=== PATIENT | female | born 1965 | race African-American/Black ===

== ENCOUNTER 2018-11-29 04:23 | Emergency (ER) | payer OTHER ==
[~2018-11-29] VITALS: Ht 175.3 cm; Wt 108.9 kg
[~2018-11-29 04:23] MED LIST: ASPIRIN325; COREG PO; DARVOCET-N 1001 EACH PO; HCTZ; HYDROCHLOROTHIA25 M1 PO; NAPROSYN500 MG PO; NORCO 5-325 TA1 EACH PO; PREDNISONE 20 M20 MG PO; PRILOSEC40 MG PO; PROAIR HFA8.5 GM INH; TUSSIONEX PENN473 ML PO; ZOCOR
[2018-11-29 04:25] VITALS: BP 140/91
[2018-11-29] MEDS ORDERED: NAPROSYN500 MG PO (05:18)
[2018-11-29] MEDS ORDERED: ACETAMINOPHEN-1 EAC1 PO (05:18)
[2018-11-29] MEDS ORDERED: AUGMENTIN 875-1 EACH PO (05:18)
== END 2018-11-29 05:50 | disposition home or self-care (01) ==
LOC: ER 04:23
DX: K11.21 Acute sialoadenitis (principal); R68.2 Dry mouth, unspecified; I10 Essential (primary) hypertension; E78.00 Pure hypercholesterolemia, unspecified; Z86.73 Personal history of transient ischemic attack (TIA), and cerebral infarction without residual deficits

== ENCOUNTER → 2019-02-11 | Outpatient (CLI) | payer OTHER ==
[~2019-02-11] MED LIST changes: +ACETAMINOPHEN-1 EAC1 PO; +AUGMENTIN 875-1 EACH PO
== END ==
LOC: RAD 12:52
DX: R05 Cough (principal)

== ENCOUNTER 2019-09-28 10:09 | Emergency (ER) | payer OTHER ==
[~2019-09-28] VITALS: Ht 175.3 cm; Wt 108.9 kg
[2019-09-28 10:21] VITALS: BP 142/99
[2019-09-28] MEDS ORDERED: MOBIC15 MG PO (11:04)
[2019-09-28] MEDS ORDERED: VOLTAREN GEL 1100 G1 TOP (11:11)
== END 2019-09-28 11:10 | disposition home or self-care (01) ==
LOC: ER 10:09
DX: S63.592A Other specified sprain of left wrist, initial encounter (principal); I10 Essential (primary) hypertension; E78.00 Pure hypercholesterolemia, unspecified; Z90.49 Acquired absence of other specified parts of digestive tract; Z86.73 Personal history of transient ischemic attack (TIA), and cerebral infarction without residual deficits; Z88.6 Allergy status to analgesic agent; Z88.8 Allergy status to other drugs, medicaments and biological substances; X50.0XXA Overexertion from strenuous movement or load, initial encounter; Y93.89 Activity, other specified; Y92.89 Other specified places as the place of occurrence of the external cause; Y99.0 Civilian activity done for income or pay

== ENCOUNTER → 2019-12-21 | Outpatient (CLI) | payer OTHER ==
[~2019-12-21] MED LIST changes: +MOBIC15 MG PO; +VOLTAREN GEL 1100 G1 TOP
== END ==
LOC: RAD 09:45
PROVIDERS: ATTEND Family Medicine
DX: M25.532 Pain in left wrist (principal)

== ENCOUNTER → 2020-01-13 | Outpatient (CLI) | payer OTHER ==
[2020-01-13 10:06] LABS: ABSOLUTE NEUTROPHILS 2.6 thou/uL (1.4-8.2); BASOPHILS 0.4 % (0.0-2.0); EOSINOPHILS 8.2 % (0.0-3.0); HEMATOCRIT 37.3 % (37.0-47.0); HEMOGLOBIN 12.5 gm/dL (12.0-15.0); LYMPHOCYTES 28.2 % (24.0-44.0); MCH 28.5 pg (26.0-34.0); MCHC 33.4 g/dL (28.0-37.0); MCV 85.3 fL (80.0-100.0); MONOCYTES 9.9 % (1.0-8.0); PLATELET COUNT 324 thou/uL (150-400); POLYS 53.3 % (36.0-66.0); RBC 4.38 mil/uL (4.20-5.00); RDW 13.3 % (10.5-14.5); WBC 4.9 thou/uL (4.0-11.0)
[2020-01-13 10:33] LABS: ALBUMIN 3.6 g/dL (3.4-5.0); ANION GAP 7 mmol/L (7-16); BUN 10 mg/dL (7-18); CALCIUM 8.8 mg/dL (8.5-10.1); CHLORIDE 104 mmol/L (98-107); CHOLESTEROL 209 mg/dL (<200); CO2 29 mmol/L (21-32); CREATININE 0.8 mg/dL (0.6-1.0); GLUCOSE 119 mg/dL (74-106); HDL CHOLESTEROL 42 mg/dL (>40); LDL CHOLESTEROL 147 mg/dL (<100); POTASSIUM 3.9 mmol/L (3.5-5.1); SGOT 21 U/L (15-37); SGPT 24 U/L (30-65); SODIUM 140 mmol/L (136-145); TOTAL BILIRUBIN 0.6 mg/dL (0.2-1.0); TRIGLYCERIDE 104 mg/dL (<150); VLDL 21 mg/dL (<40)
[2020-01-14 03:06] LABS: 25-HYDROXY TOTAL 9.8 ng/mL (30.0-100.0)
== END ==
LOC: LAB 09:37
PROVIDERS: ATTEND Family Medicine
DX: I10 Essential (primary) hypertension (principal); E78.5 Hyperlipidemia, unspecified; E55.9 Vitamin D deficiency, unspecified; M35.9 Systemic involvement of connective tissue, unspecified